=== PATIENT | male | born 1960 | race African-American/Black ===

== ENCOUNTER 2021-08-19 10:45 | Emergency (ER) | payer MEDICAID ==
[~2021-08-19] VITALS: Ht 172.7 cm; Wt 107.0 kg
[2021-08-19] MEDS ORDERED: IBUPROFEN 600MG TABLET PO ONE (11:00)
[2021-08-19] MEDS ORDERED: HYDRALAZINE 20MG/ML VIAL IV ONE (11:00)
[2021-08-19 11:22] VITALS: BP 228/135
[2021-08-19 11:24] LABS: BASOPHILS % 1.3 % (0.0-2.0); EOSINOPHILS % 1.9 % (0.0-5.0); HEMOGLOBIN. 15.5 g/dL (14.0-18.0); LYMPHOCYTES % 25.6 % (20.0-50.0); MEAN CORPUSCULAR HEMOGLOBIN 29.7 pg (28.0-32.0); MEAN CORPUSCULAR VOLUME 90.4 fL (80.0-94.0); MEAN PLATELET VOLUME 8.2 fl (7.4-10.4); NEUTROPHILS % 61.2 % (40.0-76.0); PLATELET 239 x1000/uL (130-400); RED CELL DISTRIBUTION WIDTH 15.6 % (11.6-14.6)
[2021-08-19 11:32] LABS: CHLORIDE 111 mEq/L (98-107)
[2021-08-19] MEDS ORDERED: IBUP-2029 MT (11:57)
[2021-08-19] MEDS ORDERED: AMLO5TAB4 MT (12:50)
[2021-08-19] MEDS ORDERED: HYDR25TA MT (12:50)
== END 2021-08-19 13:07 | disposition home or self-care (01) ==
LOC: ER 10:45
DX: S60.221A Contusion of right hand, initial encounter (principal); X58.XXXA Exposure to other specified factors, initial encounter; Y93.89 Activity, other specified; Y92.89 Other specified places as the place of occurrence of the external cause; Y99.8 Other external cause status; I10 Essential (primary) hypertension; Z79.899 Other long term (current) drug therapy
CPT/HCPCS: 36415; 73130; 80048; 85025; 96374; 99284; J0360

== ENCOUNTER 2022-12-09 09:12 | Emergency (ER) | payer MEDICAID, OTHER ==
[~2022-12-09] VITALS: Ht 172.7 cm; Wt 79.5 kg
[~2022-12-09 09:12] MED LIST: AMLO5TAB4 MT; HYDR25TA MT; IBUP-2029 MT
[2022-12-09 09:20] VITALS: BP 161/120
[2022-12-09] MEDS ORDERED: NAP5EC PO (10:01)
[2022-12-10] MEDS ORDERED: IBUP-2029 PO (08:22)
== END 2022-12-09 11:21 | disposition home or self-care (01) ==
LOC: ER 09:12
DX: M25.561 Pain in right knee (principal); R93.7 Abnormal findings on diagnostic imaging of other parts of musculoskeletal system; I10 Essential (primary) hypertension; Z88.6 Allergy status to analgesic agent; Z88.5 Allergy status to narcotic agent
CPT/HCPCS: 73562; 99283